=== PATIENT | male | born 1975 | race Two or more races ===

== ENCOUNTER 2021-01-13 06:33 | Emergency (ER) | payer MEDICAID, OTHER ==
[~2021-01-13] VITALS: Ht 172.7 cm; Wt 84.4 kg
[2021-01-13 06:33] VITALS: BP 136/95
[2021-01-13 08:21] LABS: Basophils # (auto) 0.1 10 ^3/uL (0-0.2); Basophils % (auto) 0.5 % (0.0-2.0); Eosinophils # (auto) 0.1 10 ^3/uL (0-0.8); Eosinophils % (auto) 0.7 % (0.0-7.0); Hematocrit 43.6 % (41.0-53.0); Hemoglobin 15.2 g/dL (13.5-17.5); Lymphocytes # (auto) 2.1 10 ^3/uL (0.4-5.4); Lymphocytes % (auto) 20.1 % (10.0-50.0); Mean Corpuscular Hemoglobin 29.7 pg (28.0-32.0); Monocytes % (auto) 9.4 % (0.0-12.0); Neutrophils # (auto) 7.3 10 ^3/uL (1.6-8.6); Neutrophils % (auto) 69.3 % (37.0-80.0); Red Blood Cells 5.12 10^6/uL (4.5-5.90); Red Cell Distribution Width 13.8 % (11.8-14.3); White Blood Cell 10.6 10^3/uL (4.4-10.8)
[2021-01-13 08:37] LABS: Albumin 4.4 g/dL (3.4-5.0); Calcium 9.1 mg/dL (8.5-10.1)
[2021-01-13 08:41] LABS: BUN/Creatinine Ratio 15.4; Bilirubin, Total 1.9 mg/dL (0.2-1.0); Total Protein 8.2 g/dL (6.4-8.2)
== END 2021-01-13 10:46 | disposition left against medical advice (07) ==
LOC: ER 06:33
DX: R10.9 Unspecified abdominal pain (principal); R31.9 Hematuria, unspecified; Z53.21 Procedure and treatment not carried out due to patient leaving prior to being seen by health care provider
CPT/HCPCS: 36415; 80053; 85025